=== PATIENT | female | born 1980 | race African-American/Black ===

== ENCOUNTER 2022-04-13 10:29 | Outpatient (REF) | payer OTHER, MEDICAID, SELFPAY ==
--- NOTE | ~2022-04-13 | MM_ITS ---
EXAMINATION: MM SCREENING DIGITAL BREAST TOMOSYNTHESIS, BILATERAL CLINICAL INFORMATION: Screening. Asymptomatic. No prior mammography. Age 41. No known family history breast cancer. The lifetime risk of breast cancer based on the Tyrer-Cuzick Model is 11%. COMPARISON: None (current study represents initial baseline exam). TECHNIQUE: Digital breast tomosynthesis is performed in both the craniocaudal and mediolateral oblique views along with computer-aided detection (CAD). Synthesized 2D images are generated from the tomosynthesis. FINDINGS: The breasts are heterogeneously dense, which may obscure small masses (ACR BI-RADS breast composition Category c). The right breast is unremarkable. There is no mass or architectural abnormality. Neither breast shows abnormal calcifications. The bilateral axilla and skin contours are unremarkable. Left breast has focal nodular asymmetric density under 1 cm mid to posterior upper outer quadrant likely intramammary node. As this represents initial baseline exam, patient will be recalled for additional imaging. MM/MM tomosynthesis screening BI IMPRESSION: Left: -Focal nodular asymmetric density upper outer quadrant, suspect intramammary node. Right: -No mammographic evidence of malignancy. ASSESSMENT: BI-RADS 0: Incomplete - Need Additional Imaging Evaluation RECOMMENDATION: 1. Additional views of the left breast (spot CC, spot ML). 2. Targeted ultrasound if warranted after review of the additional views. 3. Radiology department staff will contact the patient for additional imaging. This patient's information was entered into a reminder system with a target due date for their next mammogram.
== END 2022-04-13 10:30 | disposition home or self-care (01) ==
LOC: HO.MAMMO 10:29
PROVIDERS: PCP Internal Medicine; Visit Provider Internal Medicine
DX: Z12.31 Encounter for screening mammogram for malignant neoplasm of breast (principal)
CPT/HCPCS: 77063; 77067

== ENCOUNTER 2022-04-19 08:28 | Outpatient (REF) | payer OTHER, MEDICAID, SELFPAY ==
--- NOTE | ~2022-04-19 | MM_ITS ---
EXAMINATION: MM DIAGNOSTIC DIGITAL BREAST TOMOSYNTHESIS, LEFT US DIAGNOSTIC ULTRASOUND BREAST, LEFT CLINICAL INFORMATION: Recall from baseline exam for question of focal nodular asymmetry upper outer breast, possibly intramammary node. COMPARISON: Mammography: 04/13/2022 TECHNIQUE: Digital breast tomosynthesis is performed. 2D images are generated from the tomosynthesis. The following views are obtained: Spot CC, spot ML Ultrasound left breast is targeted to the upper outer quadrant using grayscale imaging and color Doppler without and with harmonics. FINDINGS: The breasts are heterogeneously dense, which may obscure small masses (ACR BI-RADS breast composition Category c). The additional views shows normal fibronodular parenchymal pattern without mass, nodular asymmetry, or architectural abnormality. Ultrasound demonstrates no cystic or solid mass or architectural abnormality or focal duct ectasia. Results are discussed with the patient at time of visit. MM/MM tomosynthesis added views L IMPRESSION: -Normal parenchymal pattern without underlying mass or architectural abnormality. -Unremarkable left breast ultrasound. ASSESSMENT: BI-RADS 1: Negative RECOMMENDATION: Routine annual mammography screening. This patient's information was entered into a reminder system with a target due date for their next mammogram.
== END 2022-04-19 08:29 | disposition home or self-care (01) ==
LOC: HO.MAMMO 08:28
PROVIDERS: PCP Internal Medicine; Visit Provider Internal Medicine
DX: N64.89 Other specified disorders of breast (principal)
CPT/HCPCS: 76642; 77061; 77065

== ENCOUNTER 2023-12-12 11:24 | Outpatient (REF) | payer BC, SELFPAY ==
[2023-12-12 14:46] LABS: Alanine Aminotransferase 21 U/L (0-31); Alkaline Phosphatase 52 U/L (39-117); Anion Gap 10 (12-20); Aspartate Amino Transferase 17 U/L (5-31); Bilirubin Total 0.3 mg/dL (0.0-1.0); Blood Urea Nitrogen 12 mg/dL (9-16); Calcium 9.8 mg/dL (8.4-10.2); Carbon Dioxide 27 mmol/L (22-29); Chloride 106 mmol/L (96-108); Cholesterol 166 mg/dL (<200); Estimated Glomerular Filt Rate > 60; Glucose Random 78 mg/dL (60-115); HDL Cholesterol 63 mg/dL (>40); LDL Cholesterol Calculated 93 mg/dL (<100); Potassium 3.6 mmol/L (3.3-5.1); Sodium 139 mmol/L (135-145); Total Protein 7.7 g/dL (6.5-8.0); Triglycerides 52 mg/dL (<150)
[2023-12-12 15:03] LABS: TSH reflex Free T4 1.04 uIU/mL (0.32-4.0)
[2023-12-12 18:09] LABS: Estimated Average Glucose 117 mg/dL; Hemoglobin A1c % 5.7 % (<6.0)
[2023-12-13 04:27] LABS: HIV AB/AG Nonreactive (Nonreactive); HIV Num 1 0.07 S/CO (0.00-0.99); ~HepC Num1 0.48 S/CO (0.00-0.79); ~Hepatitis C Antibody Nonreactive (Nonreactive)
[2023-12-13 09:23] LABS: Rubeola IgG (Measles) >300.00 AU/mL
== END 2023-12-12 11:25 | disposition home or self-care (01) ==
LOC: HO.CHCLDS 11:24
PROVIDERS: Visit Provider Internal Medicine
DX: Z00.00 Encounter for general adult medical examination without abnormal findings (principal); R73.01 Impaired fasting glucose
CPT/HCPCS: 36415; 80053; 80061; 83036; 84443; 86735; 86762; 86765; 86803; 87389

== ENCOUNTER 2024-05-09 13:47 | Outpatient (REF) | payer BC, SELFPAY ==
--- OUTSIDE RECORDS SUMMARY | 2024-05-09 13:49 | XMS_ITS | Encounter Summary ---
Author Organization [employer] Address [address] [facility] [address] [place] [address] Care Team Providers Care Security Intelligence Analyst Name Role Phone Comfort Bueno MD Primary Care Provider [phone] Reason for Visit * Reason Onset Date Comments Lab Orders 05/07/2024 Encounter Details Date Type Department Care Team (Late st Contact Info) Description 05/07/2024 Telephone [facility] MEDICINE [address] [place] [address] Comfort Bueno MD [address] [place] [address] Lab Orders Social History Tobacco Use Types Packs/Day Years Used Date Smoking Tobacco: Never Passive Smoke Exposure: Never Smokeless Tobacco: Never Alcohol Use Standard Drinks/Week Comments Never 0 (1 standard drink = 0.6 oz pur e alcohol) Depression Answer Date Recorded Patient Health Questionnaire-9 Score 3 12/12/2023 Patient Health Questionnaire-9 Score 3 12/12/2023 Last PHQ-9: Questionnaire Data Not on file 0 12/12/2023 Housing Stability Answer Date Recorded What is your housing situation today? I have rosario rivera 12/04/[address] you li ve. Do you have problems with any of the following? None of the above 12/04/2023 Food Insecurity Answer Date Recorded Within the past 12 months, y ou worried that your food would run out before you got money to buy more: Never True 12/04/2023 Within the past 12 months,th e food you bought just didn't last and you didn't have enough money to get more: Never True Transportation Answer Date Recorded In the past 12 months, has l ack of transportation kept you from medical appts, meetings, work or from getting things needed for daily living? No 12/04/2023 Utilities Answer Date Recorded In the past 12 months, has t he electric, gas, oil or water company threatened to shut off services in your home? 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 Stated would send to PCP to write a letter. Pt stated she would get the other lab titers done. Pt is attending a program at [facility]. Does not have number for the office that handles medical information. Currently has ongoing symptoms of heavy discharge and foul smelling urine since the first week of March. Denies fever. LMP at the beginning of this month. Gave pt appt with walk-in at [facility] at 9am. Pt verbalized understanding and agreement with plan. * Telephone Encounter - Meghan Villalpando RN - 05/08/2024 11:14 AM EST TC placed to pt regarding labs. Pt states for school, she needs titers done for varicella and MMR. Additionally, the pt needs the questionnaire for tuberculosis for school purposes. Message forwardedto PCP to review. * Telephone Encounter - Abhay Ladd - 05/07/2024 1:45 PM EST Tc from pt requesting to have lab work done. Pt denied any immediate concerns just wants blood workdone. Please contact pt at [phone]. documented in this encounter Plan of Treatment Not on file documented as of this encounter Visit Diagnoses Not on filedocumented in this encounter Additional Health Concerns Assessment Noted Time PHQ-9 Depression Total Score: 3 12/12/19 24 10:50 AM EDT documented as of this encounter Care Teams Security Intelligence Analyst Relationship Specialty Start Date End Date Comfort Bueno MD [address] [place] [phone] PCP - General Internal Medicine 03/18/18 documented as of this encounter
--- OUTSIDE RECORDS SUMMARY | 2024-05-09 13:49 | XMS_ITS | Encounter Summary ---
Author Organization [employer] Address [address] [place] [address] [address] [place] [address] Care Team Providers Care Border Police Name Role Phone Comfort Bueno MD Primary Care Provider [phone]- [phone] Reason for Visit * Reason Comments Vaginal Discharge Encounter Details Date Type Department Care Team ([facility] st Contact Info) Description 05/09/2024 9:00 AM EST Office Visit [facility] [address] [place] [address] [phone] Name, MD Carlos [address] [place] [address] [phone] Vaginal discharge (Primary Dx) Social History Tobacco Use Types Packs/Day Years [...] AM EDT documented as of this encounter Last Filed Vital Signs Vital Sign Reading Time Taken Comments Blood Pressure 110/70 05/09/2024 9:13 AM EST Pulse 83 05/09/2024 9:13 AM EST Temperature 37.1 ??C (98.7 ??F) 05/09/2024 9:13 AM ES T Respiratory Rate 20 05/09/2024 9:13 AM EST Oxygen Saturation 100% 05/09/2024 9:13 AM EST Inhaled Oxygen Concentration - - Weight 59 kg (130 lb) 05/09/2024 9:13 AM EST Height 160 cm (5' 3 ) 05/09/2024 9:13 AM EST Body Mass Index 23.03 05/09/2024 9:13 AM EST documented in this encounter Progress Notes * Carlos Mensah MD - 05/09/2024 9:00 AM EST Subjective Patient ID: Fatou Burnett is a 43 y.o. female who presents for Vaginal Discharge. Vaginal Discharge The patient's primary symptoms include genital itching, a genital odor and vaginal discharge. The patient's pertinent negatives include no genital rash, missed menses or pelvic pain. This is a new problem. The current episode started more than 1 month ago. The problem occurs intermittently. The problem has been unchanged. The patient is experiencing no pain. She is not . Pertinent negatives include no chills, dysuria, fever, flank pain or rash. The vaginal discharge was thick and white.There has been no bleeding. She has tried nothing for the symptoms. She is not sexually active. Sheuses condoms for contraception. Her menstrual history has been regular. There is no history of an STD. Review of Systems Constitutional: Negative for chills and fever. Genitourinary: Positive for vaginal discharge. Negative for dysuria, flank pain, missed menses and pelvic pain. Skin: Negative for rash. Visit Vitals BP 110/70 (BP Location: Right arm, Patient Position: Sitting, BP Cuff Size: Adult) Pulse 83 Temp 98.7 ??F (37.1 ??C) (Oral) Resp 20 Ht 5' 3 (1.6 m) Wt 130 lb (59 kg) LMP 04/19/2024 (Approximate) SpO2 100% BMI 23.03 kg/m?? Smoking Status Never BSA 1.62 m?? Objective Physical Exam Constitutional: General: She is not in acute distress. Appearance: She is not toxic-appearing. Cardiovascular: Rate and Rhythm: Normal rate and regular rhythm. Pulmonary: Effort: Pulmonary effort is normal. No respiratory distress. Abdominal: General: Abdomen is flat. There is no distension. Assessment/Plan Diagnoses and all orders for this visit: Vaginal discharge Comments: I suspect vaginal yeast infection. I recommended treatment with 1 dose of fluconazole. Evaluation with testing listed below. Further recommendation based on the results and response to the medication. Orders: - Chlamydia/N. Gonorrhoeae RNA, TMA, Urogenitial - Bacterial Vaginosis - POCT Urinalysis - POCT Urine Other orders - fluconazole (Diflucan) 150 MG tablet; Take 1 tablet (150 mg) by mouth 1 (one) time for 1 dose. documented in this encounter Plan of Treatment Scheduled Orders Name Type Priority Associated Diagnoses Orde r Schedule Chlamydia/N. Gonorrhoeae RNA, TMA, Urogenitial Microbiology Routine Vaginal discharge Ordered: 05/09/2024 Bacterial Vaginosis Microbiology Routine Vaginal discharge Ordered: 05/09/2024 documented as of this encounter Procedures Procedure Name Priority Date/Time Associated Diagnosis Comments POCT URINALYSIS DIPSTICK Routine 05/09/2024 9:27 AM EST Vaginal discharge POCT , URINE Routine 05/09/2024 9:26 AM EST Vaginal discharge documented in this encounter Results * (ABNORMAL) POCT Urinalysis (05/09/2024 9:27 AM EST) Color, UA Yellow Clarity, UA Clear Glucose, UA Negative Bilirubin, UA Negative Ketones, UA Negative Spec Grav, UA 1.020 Blood, UA Negative Negative, None Detected pH, UA 6.0 Protein, UA Negative Urobilinogen, UA 1.0 Leukocytes, UA Few 15(A) Negative, Rare, Trace Comment:small Nitrite, UA Negative Negative, None Detected Appearance, UA clear QC Media Lot # [id number] Lot# Expiration Date [id number] Urine 05/09/2024 9:27 AM EST us Carlos Mensah MD POINT OF CARE TEST ENTER/EDIT OR DERABLES Final Result * POCT Urine (05/09/2024 9:26 AM EST) Preg Test, Ur Negative Negative, Indeterminate, None Detected, Invalid, Specimen unsatisfactory for evaluation, Weakly Positive QC Media Lot # [id number] Lot# Expiration Date [id number] Urine 05/09/2024 9:2 6 AM EST Carlos Mensah MD POINT OF CARE TEST ENTER/EDIT OR DERABLES Final Result documented in this encounter Visit Diagnoses Diagnosis Vaginal discharge- Primary Leukorrhea, not specified as infective documented in this encounter Additional Health Concerns Assessment Noted Time PHQ-9 Depression Total Score: 3 12/12/19 24 10:50 AM EDT documented as of this encounter Care Teams Border Police Relationship Specialty Start Date End Date Comfort Bueno MD [address] [place] [phone] PCP - General Internal Medicine 03/18/18 documented as of this encounter
--- OUTSIDE RECORDS SUMMARY | 2024-05-09 13:49 | XMS_ITS | Encounter Summary ---
Author Organization [employer] Address [address] [place] [address] [address] [place] [address] Care Team Providers Care Tax Evaluator Name Role Phone Comfort Bueno MD Primary Care Provider +1- [phone] Encounter Details Date Type Department Care Team ([facility] st Contact Info) Description 05/08/2024 Orders Only [facility]S [address] [place], [place] [phone] Comfort Bueno MD [address] [place] [address] IFG (impaired fasting glucose) (Primary Dx) Social History Tobacco Use Types [...] AM EDT documented as of this encounter Plan of Treatment Scheduled Orders Name Type Priority Associated Diagnoses Orde r Schedule Varicella Zoster Antibody, IgG Lab Routine IFG (impaired fasting glucose) Expected: 05/08/2024 (Approximate), Expires: 05/08/2025 Measles, Mumps, and Rubella (MMR) Antibodies??(IgG) Panel, Immune Status Lab Routine IFG (impaired fasting glucose) Expected: 05/08/2024 (Approximate), Expires: 05/08/2025 T-SPOT??.TB Lab Routine IFG (impaired fasting glucose) Expected: 05/08/2024 (Approximate), Expires: 05/08/2025 documented as of this encounter Visit Diagnoses Diagnosis IFG (impaired fasting glucose)- Primary documented in this encounter Additional Health Concerns Assessment Noted Time PHQ-9 Depression Total Score: 3 12/12/19 24 10:50 AM EDT documented as of this encounter Care Teams Tax Evaluator Relationship Specialty Start Date End Date Comfort Bueno MD [address] [place] [phone] PCP - General Internal Medicine 03/18/18 documented as of this encounter
--- OUTSIDE RECORDS SUMMARY | 2024-05-09 13:49 | XMS_ITS | Clinical Summary ---
Author Organization [employer] Address [address] [place] [address] 7 [place] [address] Care Team Providers Care Filler In Name Role Phone Comfort Bueno MD Primary Care Provider Allergies No known active allergies Medications fluconazole (Diflucan) 150 MG tablet Take 1 tablet (150 mg) by mouth 1 (one) time for 1 dose. 1 tablet 05/09/2024 Active Active Problems No known active problems Encounters Date Type Department Care Team Description 05/09/2024 9:00 AM EST Office Visit [facility] [address] [place] [phone] Carlos Mensah MD Vaginal discharge (Primary Dx) 05/08/2024 Travel 05/08/2024 Orders Only [facility]S [address] [place] [address] Comfort Bueno MD IFG (impaired fasting glucose) (Primary Dx) 05/07/[address] [facility] [address] [place] [address] Comfort Bueno MD Lab Orders from Last 3 Months Immunizations Name Administration Dates Next Due Hep B, adult 12/12/2023,07/06/2014 Influenza, seasonal, injectable, preservative fr ee 12/12/2023 Tdap 12/12/2023,06/01/2012 Family History Medical History Relation Name Comments Diabetes Mother Relation Name Status Comments Mother Social History Tobacco Use Types Packs/Day Years Used Date Smoking Tobacco: Never Passive Smoke Exposure: Never Smokeless Tobacco: Never Tobacco Cessation:Counseling Given: Not Answered Alcohol Use Standard Drinks/Week Comments Never 0 [...] Orientation Straight 01/15/2022 10 :25 AM EDT Last Filed Vital Signs Vital Sign Reading [...] Mass Index 23.03 05/09/2024 9:13 AM EST Plan of Treatment Health Maintenance Due Date Last Done Comments Alcohol/Substance Use Screening 1993 Family Planning (PISQ) 1996 Pap Smear 2002 Dental Oral Exam 07/18/2019 01/16/2019, 03/14/2016 Dental Prophylaxis 08/30/2019 02/27/2019, 0 09/24/2016, 03/16/2016 Cervical Cancer Screening 01/07/2023 HPV/Cotest 01/07/2023 01/07/2018 COVID-19 Vaccine ( season) 2023 02/17/2021, 05/03/2020, 04/12/2020 Hepatitis B Vaccines (3 of 3 - 19+ 3-dose series) 02/06/2024 12/12/2023, 07/06/2014 Mammogram 04/19/2024 04/19/2022, 04/2022, 04/13/2022 Dental X-Ray: Bitewings 11/15/2024 11/15/19 24, 01/16/2019, 03/14/2016 SDOH Screening 12/03/2024 12/04/2023 Depression Screening 12/11/2024 12/12/2023, 12/12/19 24 Diabetes: Hemoglobin A1C 12/11/2024 12/12/2023, 0207/2022 Tobacco Screening 05/09/2025 05/09/2024 Dental X-Ray: Full Mouth 11/15/2026 024, 01/16/2019, 03/26/2016, Additional history exists Zoster Vaccines (1 of 2) 06/29/2031 DTaP/Tdap/Td Vaccines (3 - Td or Tdap) 12/11/2033 12/12/2023, 06/01/2012 RSV Patients and Patients Aged 60 years or older (1 - 1-dose 75+ series) 2056 HIV Screening Completed 12/12/2023 Hepatitis C Screening Completed 12/12/2023 Influenza Vaccine Completed 12/12/2023, , 01/04/2022, Additional history exists HIB Vaccines Aged Out No longer eligi ble based on patient's age to complete this topic HPV Vaccines Aged Out No longer eligi ble based on patient's age to complete this topic Hepatitis A Vaccines Aged Out No long er eligible based on patient's age to complete this topic IPV Vaccines Aged Out No longer eligi ble based on patient's age to complete this topic Meningococcal Vaccine Aged Out No miguelina silvino eligible based on patient's age to complete this topic Pneumococcal Vaccine: Pediatrics (0 to 5 Years) and At-Risk Patients (6 to 49) Years) Aged Out No longer eligible based on patient's age to complete this topic RSV under 20 months Aged Out No longe r eligible based on patient's age to complete this topic Rotavirus Vaccines Aged Out No longer eligible based on patient's age to complete this topic Procedures Procedure Name Priority Date/Time Associated Diagnosis Comments POCT URINALYSIS DIPSTICK Routine 05/09/2024 9:27 AM EST Vaginal discharge POCT , URINE Routine 05/09/2024 9:26 AM EST Vaginal discharge HEPATITIS C AB W/REFL TO HCV RNA, QN, PCR Routine 12/12/2023 11:35 AM EDT Annual physical exam HIV 1/2 ANTIGEN/ANTIBODY, FOURTH GENERATION W/RFL Routine 12/12/2023 11:35 AM EDT Annual physical exam HEMOGLOBIN A1C Routine 12/12/2023 11:35 AM EDT IFG (impaired fasting glucose) INTRAORAL - COMPLETE SERIES OF RADIOGRAPHIC IMAGES Routine 11/15/2023 8:00 AM EDT HM MAMMOGRAPHY Routine 04/19/2022 4:09 PM EST PROPHYLAXIS - ADULT Routine 02/27/2019 1 2:00 AM EST PERIODIC ORAL EVALUATION - ESTABLISHED PATIENT Routine 01/16/2019 12:00 AM EDT ZZZ HISTORICAL HPV MRNA E6/E7 Routine 01/07/2018 10:22 AM EDT from Last 3 Months or Most Recently Relevant to Health Maintenance Results * (ABNORMAL) POCT Urinalysis (05/09/2024 9:27 [...] Media Lot # [id number] Lot# Expiration Date [id number] Urine 05/09/2024 9:27 AM EST Carlos Mensah MD POINT OF CARE TEST ENTER/EDIT OR DERABLES Final Result * POCT Urine (05/09/2024 9:26 AM EST) Preg Test, Ur Negative Negative, Indeterminate, None Detected, Invalid, Specimen unsatisfactory for evaluation, Weakly Positive QC Media Lot # [id number] Lot# Expiration Date [id number] Urine 05/09/2024 9:26 AM EST Carlos Mensah MD POINT OF CARE TEST ENTER/EDIT OR DERABLES Final Result * Hepatitis C Antibody with Reflex to HCV, RNA, Quantitative, Real-Time PCR (12/12/2023 11:35 AM EDT) Pathologist [facility] Hepatitis C Antibody Nonreactive Nonreactive [facility] Comment:Antibodies to HCV no t detected; does not exclude early acuteHCV infection. Blood Venous blood specimen / Unknown 12/12/2023 11:35 AM EDT 12/12/2023 2:13 PM EDT us Comfort Bueno MD LAB BLOOD ORDERABLES Final Result [facility] [address] [place] [phone] * HIV-1/2 Antigen and Antibodies, Fourth Generation, with Reflexes (12/12/2023 11:35 AM EDT) HIV AB/AG Nonreactive Nonreactive [facility] Comment:HIV-1 p24 Ag and/or HIV-1/HIV-2 Ab not detected.A test result that is nonreactive does not exclude thepossibility of exposure to or infection with HIV-1 and/orHIV-2. Nonreactive results in this assay for individualswith prior exposure to HIV-1 and/or HIV-2 may be due toantigen and antibody levels that are below the limit ofdetection of this assay.[employer] HIV Ag/Ab Combo assay result andsupplemental assay results should be interpreted inconjunction with the patient's clinical presentation,history and other laboratory results. If the results areinconsistent with clinical evidence, additional testing issuggested to confirm the result. Blood Venous blood specimen / Unknown 12/12/2023 11:35 AM EDT 12/12/2023 2:13 PM EDT us Comfort Bueno MD LAB BLOOD ORDERABLES Final Result [facility] [address] [place] [phone] * Hemoglobin A1c (12/12/2023 11:35 AM EDT) Hemoglobin A1c 5.7 <6.0 % [facility] Comment:Hemoglobin A1C Refer ence Range Adults: 4.8 - 6.0 % Non diabetic: < 6.0 % Goal: < 7.0 %Additional Action Suggested: > 8.0 %Note: Hemoglobin A1c results are invalid for patients with abnormal amounts of HbF. Blood transfusions may impact the HbA1c concentration in the patient sample. Estimated Average Glucose 117 mg/dL [facility] Comment:eAG = Estimated ave rage glucose which is %A1C expressed asaverage glucose, using the formula of the K3L-WfwxoqrZqlggon Glucose study (ADAG), Diabetes Care, Vol.31,#8,2007 Blood Venous blood specimen / Unknown 12/12/2023 11:35 AM EDT 12/12/2023 2:13 PM EDT us Comfort Bueno MD LAB BLOOD ORDERABLES Final Result [facility] [address] [place] [address] [phone] * Hm Mammography (04/19/2022 4:09 PM EST) Mammogram Birads 1 Anatomical Region Laterality Modality Other Narrative 04/19/2022 4:09 PM EST Recommended routine annual screening us Historical Provider HEALTH MAINTENANCE Final Result * HPV mRNA E6/E7 (01/07/2018 10:22 AM EDT) HPV mRNA E6/E7 Not Detected NOT DETECTED [facility] [facility] Comment: This test was performed using the APTIMA(R) HPV Assay ([employer] This assay detects E6/E7 viral messenger RNA (mRNA) from 14 high-risk HPV types (16,18,31,33,35,39,45,51, 52,56,58,59,66,68). For additional information please refer to: http://education.[employer]/faq/QVV924x8 (This link is being provided for informational/ educational purposes only.) The analytical performance characteristics of this assay have been determined by [employer] [place], [place]. The modifications have not been cleared or approved by the FDA. This assay has been validated pursuant to the CLIA regulations and is used for clinical purposes. Test Performed by [employer] [facility], [address] [place] [address] Jose Martin Gimenez M.D., Ph.D., Director of Laboratories , CLIA [id number] Please note: ??Effective 11/28/2015, HPV testing will be performed using [employer] APTIMA test which targets mRNA. Detecting mRNA instead of DNA, as in older methods, offers significant improvements in specificity. 01/07/2018 10:2 2 AM EDT us Madhavi Blancasjustynpebbles [facility] HISTORICAL/NON ORDERABLE LABS Final Result [facility] [address] from Last 3 Months or Most Recently Relevant to Health Maintenance Insurance BCBS PPO [facility]AL - [facility] Care Teams Filler In Relationship Specialty Start Date End Date Comfort Bueno MD [address] [place] [phone] PCP - General Internal Medicine 03/18/18
--- OUTSIDE RECORDS SUMMARY | 2024-05-09 13:49 | XMS_ITS | Encounter Summary ---
Author Organization [employer] Address [address] [facility] [address] [place] [address] Care Team Providers Care Shaker Tender Name Role Phone Comfort Bueno MD Primary Care Provider [phone] Reason for Visit * Reason Onset Date Comments ER Follow-up 04/23/2023 Encounter Details Date Type Department Care Team ([facility] st Contact Info) Description 04/23/2023 Telephone [facility] MEDICINE [address] [place] [address] Comfort Bueno MD [address] [place] [address] ER Follow-up Social History Tobacco Use Types Packs/Day Years Used Date Smoking Tobacco: Never Passive Smoke Exposure: Never Smokeless Tobacco: Never Alcohol Use Standard Drinks/Week Comments Never 0 (1 standard drink = 0.6 oz pur e alcohol) Depression Answer Date Recorded Patient Health Questionnaire-9 Score 2 05/02/2022 Housing Stability Answer Date Recorded What is your housing situation today? I have rosario rivera 01/15/[address] you li ve. Do you have problems with any of the following? None of the above 01/15/2023 Food Insecurity Answer Date Recorded Within the past 12 months, y ou worried that your food would run out before you got money to buy more: Never True 01/15/2023 Within the past 12 months,th e food you bought just didn't last and you didn't have enough money to get more: Never True Transportation Answer Date Recorded In the past 12 months, has l ack of transportation kept you from medical appts, meetings, work or from getting things needed for daily living? No 01/15/2023 Utilities Answer Date Recorded In the past 12 months, has t he electric, gas, oil or water company threatened to shut off services in your home? No 01/15/2023 Depression Answer Date Recorded Patient Health Questionnaire-2 Score 1 05/02/2022 Comments Unknown Sex and Gender Information Value Date Recorded Sex Assigned at Female 01/15/2022 10:25 AM EDT Legal Sex Female 10:25 AM EDT Gender Identity Female 01/15/2022 10:25 AM EDT Sexual Orientation Straight 01/15/2022 10 :25 AM EDT documented as of this encounter Miscellaneous Notes * Telephone Encounter - Anne Ro RN - 04/24/2023 10:45 AM EST Noted pt was advised to call insurance to enroll to an insurance if pt would like to be seen, and return call to inform once active. * Telephone Encounter - William Rincon - 04/23/2023 10:50 AM EST Patient calling to report ED visit on : Date: 04/22/2023 Hospital: [facility] Seen for: Abscess neck Patient advised will forward to team nurse for follow up documented in this encounter Plan of Treatment Not on file documented as of this encounter Visit Diagnoses Not on filedocumented in this encounter Additional Health Concerns Assessment Noted Time PHQ-9 Depression Total Score: 2 05/02/19 23 10:36 AM EST documented as of this encounter Care Teams Shaker Tender Relationship Specialty Start Date End Date Comfort Bueno MD [address] [place] [address] PCP - General Internal Medicine 03/18/18 documented as of this encounter
--- OUTSIDE RECORDS SUMMARY | 2024-05-09 13:49 | XMS_ITS | Encounter Summary ---
Author Organization [employer] Address [address] [place] [address] [place] [address] Care Team Providers Care Event Management Consultant Name Role Phone Comfort Bueno MD Primary Care Provider [phone] Encounter Details Date Type Department Care Team ([facility] st Contact Info) Description 10/31/2022 Orders Only [facility] MED & PEDS [address] [place], [place] [phone] Comfort Bueno MD [address] [place] [address] Annual physical exam (Primary Dx); Screening for tuberculosis; Positive TB test Social History Tobacco Use Types Packs/Day Years Used Date Smoking Tobacco: Never Passive Smoke Exposure: Never Smokeless Tobacco: Never Alcohol Use Standard Drinks/Week Comments Never 0 (1 standard drink = 0.6 oz pur e alcohol) Depression Answer Date Recorded Patient Health Questionnaire-9 Score 2 05/02/2022 Depression Answer Date Recorded Patient Health Questionnaire-2 [...] Type Priority Associated Diagnoses Orde r Schedule QuantiFERON??-TB Gold Plus, 1 Tube Lab Routine Screening for tuberculosis Expected: 10/31/2022 (Approximate), Expires: 11/01/2023 XR Chest 2 Views Imaging Routine Positive TB test Expected: 11/01/2022 (Approximate), Expires: 11/02/2023 documented as of this encounter Visit Diagnoses Diagnosis Annual physical exam- Primary Routine general medical examination at a health care facility Screening for tuberculosis Screening examination for pulmonary tuberculosis Positive TB test documented in this encounter Additional Health Concerns Assessment Noted Time PHQ-9 Depression Total Score: 2 05/02/19 23 10:36 AM EST documented as of this encounter Care Teams Event Management Consultant Relationship Specialty Start Date End Date Comfort Bueno MD [address] [place] [phone] PCP - General Internal Medicine 03/18/18 documented as of this encounter
--- OUTSIDE RECORDS SUMMARY | 2024-05-09 13:49 | XMS_ITS | Encounter Summary ---
Author Organization [employer] Address [address] [place] [address] [place] [address] Care Team Providers Care Rattling Machine Tender Name Role Phone Comfort Bueno MD Primary Care Provider Encounter Details Date Type Department Care Team ([facility] st Contact Info) Description 08/24/2022 Abstract [facility] MED & PEDS [address] [place] [address] Comfort Bueno MD [address] [place] [address] Social History Tobacco Use Types Packs/Day Years [...] as of this encounter Plan of Treatment Not on file documented as of this encounter Procedures Procedure Name Priority Date/Time Associated Diagnosis Comments MAMMOGRAPHY Routine 04/19/2022 4:09 PM EST documented in this encounter Results * Mammography (04/19/2022 4:09 PM EST) Mammogram Birads 1 Anatomical Region Laterality Modality Other Narrative 04/19/2022 4:09 PM EST Recommended routine annual screening us Historical Provider HEALTH MAINTENANCE Final Result documented in this encounter Visit Diagnoses Not on filedocumented in this encounter Additional Health Concerns Assessment Noted Time PHQ-9 Depression Total Score: 2 05/02/19 23 10:36 AM EST documented as of this encounter Care Teams Rattling Machine Tender Relationship Specialty Start Date End Date Comfort Bueno MD [address] [place] [phone] PCP - General Internal Medicine 03/18/18 documented as of this encounter
--- OUTSIDE RECORDS SUMMARY | 2024-05-09 13:49 | XMS_ITS | Encounter Summary ---
Author Organization [employer] Address [address] [facility] 7t [place] [address] Care Team Providers Care Sewing Machine Operator Zipper Name Role Phone Comfort Bueno MD Primary Care Provider [phone]- [phone] Encounter Details Date Type Department Care Team (Latest Contact Info) Description 05/08/2024 Travel Social History Tobacco Use Types Packs/Day Years [...] documented as of this encounter Care Teams Sewing Machine Operator Zipper Relationship Specialty Start Date End Date Comfort Bueno MD [address] [place] [phone] PCP - General Internal Medicine 03/18/18 documented as of this encounter
[2024-05-09 14:54] LABS: Bacterial Vaginosis PCR NEGATIVE (Negative); Candida Group PCR DETECTED (Not Detect); Candida glab krusei PCR NOT DETECTED (Not Detect); Trichomonas vaginalis PCR NOT DETECTED (Not Detect)
[2024-05-09 15:24] LABS: CT PCR NOT DETECTED (Not Detect.); NG PCR NOT DETECTED (Not Detect.)
== END 2024-05-09 13:48 | disposition home or self-care (01) ==
LOC: HO.HHCLNP 13:47
PROVIDERS: Visit Provider Internal Medicine Geriatric Medicine
DX: N89.8 Other specified noninflammatory disorders of vagina (principal)
CPT/HCPCS: 81515; 87491; 87591

== ENCOUNTER 2024-05-22 08:15 | Outpatient (REF) | payer BC, SELFPAY ==
--- OUTSIDE RECORDS SUMMARY | 2024-05-22 08:42 | XMS_ITS | Encounter Summary ---
Author Organization [employer] Address [address] [facility] 7t [place] [address] Care Team Providers Care Computer Designer Name Role Phone Comfort Bueno MD Primary Care Provider [phone]- [phone] Encounter Details Date Type Department Care Team [...] documented as of this encounter Care Teams Computer Designer Relationship Specialty Start Date End Date Comfort Bueno MD [address] [place] [phone] PCP - General Internal Medicine 03/18/18 documented as of this encounter
--- OUTSIDE RECORDS SUMMARY | 2024-05-22 08:42 | XMS_ITS | Encounter Summary ---
Author Organization [employer] Address [address] [place] [address] 7t [place] [address] Care Team Providers Care Theater Technician Name Role Phone Comfort Bueno MD Primary Care Provider [phone]- [phone] Encounter Details Date Type Department Care Team ([facility] st Contact Info) Description 05/08/2024 Orders Only [facility] MED & PEDS [address] [place], [place] [phone] Comfort Bueno MD [address] [place] [address] IFG (impaired fasting glucose) (Primary Dx) Social [...] documented as of this encounter Care Teams Theater Technician Relationship Specialty Start Date End Date Comfort Bueno MD [address] [place] [phone] PCP - General Internal Medicine 03/18/18 documented as of this encounter
--- OUTSIDE RECORDS SUMMARY | 2024-05-22 08:42 | XMS_ITS | Encounter Summary ---
Author Organization [employer] [facility] Address [address] [place] [address] Care Team Providers Care Canvass Manager Name Role Phone Comfort Bueno MD Primary Care Provider [phone]- [phone] Encounter Details Date Type Department Care Team (Latest Contact Info) Description 01/16/2019 Abstract [facility] CONVERSIONS Dental, Provider, DDS Social History Tobacco Use Types Packs/Day Years Used Date Smoking Tobacco: Never Assessed Comments Unknown Sex and Gender Information Value Date Recorded Sex Assigned at Female 01/15/2022 10:25 AM EDT Legal Sex Female 10:25 AM EDT Gender Identity Female 01/15/2022 10:25 AM EDT Sexual Orientation Straight 01/15/2022 10 :25 AM EDT documented as of this encounter Plan of Treatment Not on file documented as of this encounter Visit Diagnoses Not on filedocumented in this encounter Care Teams Canvass Manager Relationship Specialty Start Date End Date Comfort Bueno MD [address] [place] [address] PCP - General Internal Medicine 03/18/18 documented as of this encounter
--- OUTSIDE RECORDS SUMMARY | 2024-05-22 08:43 | XMS_ITS | Encounter Summary ---
Author Organization [employer] Address [address] [place] [address] 7 [place] [address] Care Team Providers Care Circuit Rider Name Role Phone Comfort Bueno MD Primary Care Provider [phone]- [phone] Reason for Visit * Reason Onset Date Comments Results 05/11/2024 Encounter Details Date Type Department Care Team ([facility] st Contact Info) Description 05/11/2024 Telephone [facility] MEDICINE [address] [place] [address] Name, MD Carlos [address] [place] [address] Results Social History Tobacco Use Types Packs/Day Years [...] encounter Miscellaneous Notes * Telephone Encounter - Meghan Villalpando RN - 05/11/2024 9:51 AM EST Images from the original note were not included. TC placed to pt to inform of below provider messages. Pt advised of provider message. Advised pt tocall office with any questions or concerns. Pt verbalized understanding and denies questions or concerns at this time. ----- Message from Calros Mensah MD sent at 05/11/2024 7:05 AM EST ----- Please call the patient, let her know all STD testing was negative, she tested positive for tito(vaginal yeast infection) as suspected. The treatment is the fluconazole that she was prescribed ather last visit. Carlos Mensah MD [facility] Team Nurses Please call the patient, STD testing was negative She tested positive for tito as expected and this should resolved with the fluconazole she was prescribed at her last visit. * Telephone Encounter - Jess López - 05/11/2024 9:19 AM EST Tc from pt returning call. * Telephone Encounter - Meghan Villalpando RN - 05/11/2024 8:44 AM EST Images from the original note were not included. TC placed to pt to inform of below provider messages. No answer, LVM to call office back and ask tospeak to the blue team nurses. ----- Message from Carlos Mensah MD sent at 05/11/2024 7:05 AM EST ----- Please call the patient, let her know all STD testing was negative, she tested positive for tito(vaginal yeast infection) as suspected. The treatment is the fluconazole that she was prescribed ather last visit. Carlos Mensah MD [facility] Blue Team Nurses Please call the patient, STD testing was negative She tested positive for tito as expected and this should resolved with the fluconazole she was prescribed at her last visit. documented in this encounter Plan of Treatment Not on file documented as of this encounter Visit Diagnoses Not on filedocumented in this encounter Additional Health Concerns Assessment Noted Time PHQ-9 Depression Total Score: 3 12/12/19 24 10:50 AM EDT documented as of this encounter Care Teams Circuit Rider Relationship Specialty Start Date End Date Comfort Bueno MD [address] [place] [phone] PCP - General Internal Medicine 03/18/18 documented as of this encounter
--- OUTSIDE RECORDS SUMMARY | 2024-05-22 08:43 | XMS_ITS | Encounter Summary ---
Author Organization [employer] Address [address] [place] [address] 7t [place] [address] Care Team Providers Care Room Inspector Name Role Phone Comfort Bueno MD Primary Care Provider [phone]- [phone] Reason for Visit * Reason Comments Vaginal Discharge Encounter Details Date Type Department Care Team ([facility] st Contact Info) Description 05/09/2024 9:00 AM EST Office Visit [facility] [address] [place] [phone] Name, MD Carlos [address] [place] [address] [phone] Vaginal discharge (Primary Dx) Social History Tobacco [...] Routine 05/09/2024 9:26 AM EST Vaginal discharge BACTERIAL VAGINOSIS PANEL Routine 05/09/2024 9:18 AM EST Vaginal discharge CHLAMYDIA/N. GONORRHOEAE RNA, TMA, UROGENITAL Routine 05/09/2024 9:18 AM EST Vaginal discharge documented in this [...] Media Lot # [id number] Lot# Expiration Date ,025 Urine 05/09/2024 9:27 AM EST us Carlos Mensah MD POINT OF CARE TEST ENTER/EDIT OR DERABLES Final Result * POCT Urine (05/09/2024 9:26 AM EST) Preg Test, Ur Negative Negative, Indeterminate, None Detected, Invalid, Specimen unsatisfactory for evaluation, Weakly Positive QC Media Lot # [id number] Lot# Expiration Date [id number] Urine 05/09/2024 9:26 AM EST us Carlos Mensah MD POINT OF CARE TEST ENTER/EDIT OR DERABLES Final Result * (ABNORMAL) Bacterial Vaginosis (05/09/2024 9:18 AM EST) TRICHOMONAS VAGINALIS DETECTION BY PCR NOT DETECTED Not Detect [facility] BACTERIAL VAGINOSIS DETECTION BY PCR NEGATIVE Negative [facility] Comment:The BV organism targ ets of the Xpert Xpress MVP test can becommensal in women; Xpert Xpress MVP positive results forbacterial vaginosis should be considered in conjunction withother clinical and patient information to determine thedisease status. Organisms that are not detected by the XpertXpress MVP test have also been reported to be associatedwith BV and aerobic vaginitis.The Xpert Xpress MVP test performance has not been evaluatedin patients under the age of 14. DOLORES GROUP DETECTION BY PCR DETECTED(A) Not Detect [facility] Dolores glab krusei PCR NOT DETECTED Not Detect [facility] Swab Vaginal structure / Unknown 05/09/2024 9:18 AM EST 05/09/2024 1:48 PM EST us Carlos Name MD LAB MICROBIOLOGY - GENERAL ORDER ESTEVAN Final Result [facility] [address] [place] [address] [phone] * Chlamydia/N. Gonorrhoeae RNA, TMA, Urogenitial (05/09/2024 9:18 AM EST) CT PCR NOT DETECTED Not Detect. [facility] Comment:A not detected test result does not exclude the possibilityof infection because test results can be affected byimproper specimen collection, concurrent antibiotic therapy,or the number of organisms in the specimen which may bebelow the sensitivity of the test. As with many diagnostictests, results from the Xpert CT/NG assay should beinterpreted in conjunction with other laboratory andclinical data available to the clinician.Xpert CT/NG performance has not been evaluated in patientsless than 14 years of age. The assay should not be used forthe evaluationof suspected sexual abuse or for other medico-legalindications. Additional testing is recommended in anycircumstance when false positive or false negative resultscould lead to adverse medical, social or psychologicalconsequences. NG PCR NOT DETECTED Not Detect. [facility] Comment:A not detected test result does not exclude the possibilityof infection because test results can be affected byimproper specimen collection, concurrent antibiotic therapy,or the number of organisms in the specimen which may bebelow the sensitivity of the test. As with many diagnostictests, results from the Xpert CT/NG assay should beinterpreted in conjunction with other laboratory andclinical data available to the clinician.Xpert CT/NG performance has not been evaluated in patientsless than 14 years of age. The assay should not be used forthe evaluationof suspected sexual abuse or for other medico-legalindications. Additional testing is recommended in anycircumstance when false positive or false negative resultscould lead to adverse medical, social or psychologicalconsequences. Swab (Vaginal Swab) 05/09/2024 9:18 AM EST 05/09/2024 1:48 PM EST Narrative [facility] - 05/09/2024 3:24 PM EST Vaginal us Carlos Name LAB MICROBIOLOGY - GENERAL ORDER ESTEVAN Final Result [facility] [address] [place] [address] [phone] documented in this encounter Visit Diagnoses Diagnosis Vaginal discharge- Primary Leukorrhea, not specified as infective documented in this encounter Additional Health Concerns Assessment Noted Time PHQ-9 Depression Total Score: 3 12/12/19 24 10:50 AM EDT documented as of this encounter Care Teams Room Inspector Relationship Specialty Start Date End Date Comfort Bueno MD [address] [place] [phone] PCP - General Internal Medicine 03/18/18 documented as of this encounter
--- OUTSIDE RECORDS SUMMARY | 2024-05-22 08:43 | XMS_ITS | Clinical Summary ---
Author Organization [employer] Address [address] [place] [address] [address] [place] [address] Care Team Providers Care Truck Driver Helper Name Role Phone Comfort Bueno MD Primary Care Provider [phone] Allergies No known active allergies Medications fluconazole (Diflucan) 150 MG tablet Take 1 tablet (150 mg) by mouth 1 (one) time for 1 dose. 1 tablet 05/09/2024 Active Problems No known active problems Encounters Date Type Department Care Team Description 05/11/2024 Telephone [facility] [address] [place] [phone] Carlos Mensah MD Results 05/09/2024 9:00 AM EST Office Visit [facility] [address] [place] [phone] Carlos Mensah MD Vaginal discharge (Primary Dx) 05/08/2024 Travel 05/08/2024 Orders Only [facility] [address] [place] [address] Comfort Bueno MD IFG (impaired fasting glucose) (Primary Dx) 05/07/2024 Telephone [facility] [address] [place] [phone] Comfort Bueno MD Lab Orders from Last [...] series) 02/06/2024 12/12/2023, 07/06/2014 Mammogram 04/19/2024 04/19/2022, 02/0 04/2022, 04/13/2022 Dental X-Ray: Bitewings 11/15/2024 11/15/19 24, 01/16/2019, 03/14/2016 SDOH Screening 12/03/2024 12/04/2023 Depression Screening 12/11/2024 12/12/2023, 12/12/19 24 Diabetes: Hemoglobin A1C 12/11/2024 12/12/2023, 02/1 07/2022 Tobacco Screening 05/09/2025 05/09/2024 Dental X-Ray: Full [...] Routine 05/09/2024 9:18 AM EST Vaginal discharge HEPATITIS C AB [...] ESTABLISHED PATIENT Routine 01/16/2019 12:00 AM EDT TEREZA HISTORICAL HPV MRNA E6/E7 Routine 01/07/2018 10:22 [...] * POCT Urine (05/09/2024 9:26 AM EST) Pathologist [facility] Preg Test, Ur Negative Negative, Indeterminate, None Detected, Invalid, Specimen unsatisfactory for evaluation, Weakly Positive QC Media Lot # [id number] Lot# Expiration Date [id number] Urine 05/09/2024 9:26 AM EST Carlos Mensah MD POINT OF CARE TEST ENTER/EDIT OR DERABLES Final Result * (ABNORMAL) Bacterial Vaginosis (05/09/2024 9:18 AM EST) Pathologist [facility] TRICHOMONAS VAGINALIS DETECTION BY PCR NOT DETECTED [...] EST 05/09/2024 1:48 PM EST us Carlos Mensah MD LAB MICROBIOLOGY - GENERAL ORDER ESTEVAN Final Result [facility] [address] [place] [address] [phone] * Chlamydia/N. Gonorrhoeae RNA, TMA, Urogenitial [...] LABS - 05/09/2024 3:24 PM EST Vaginal Carlos Mensah MD LAB MICROBIOLOGY - GENERAL ORDER ESTEVAN Final Result Performing Organization Address [facility] Co de Phone Number [facility] [address] [place] [phone] * Hepatitis C Antibody with Reflex to HCV, RNA, Quantitative, Real-Time PCR (12/12/2023 11:35 AM EDT) Hepatitis C Antibody Nonreactive Nonreactive [facility] Comment:Antibodies to HCV no t detected; does not exclude early acuteHCV infection. Blood Venous blood specimen / Unknown 12/12/2023 11:35 AM EDT 12/12/2023 2:13 PM EDT us Comfort Bueno MD LAB BLOOD ORDERABLES Final Result Performing Organization Address City/[facility]/ZIP Co de Phone Number [facility] [address] [place] [phone] * HIV-1/2 Antigen and Antibodies, Fourth Generation, with Reflexes (12/12/2023 11:35 AM EDT) HIV AB/AG Nonreactive Nonreactive [facility] Comment:HIV-1 p24 Ag and/or HIV-1/HIV-2 Ab not detected.A test result that is nonreactive does not exclude thepossibility of exposure to or infection with HIV-1 and/orHIV-2. Nonreactive results in this assay for individualswith prior exposure to HIV-1 and/or HIV-2 may be due toantigen and antibody levels that are below the limit ofdetection of this assay.The [employer]ella [employer] Dot Alinity HIV Ag/Ab Combo assay result andsupplemental assay results should be interpreted inconjunction with the patient's clinical presentation,history and other laboratory results. If the results areinconsistent with clinical evidence, additional testing issuggested to confirm the result. Blood Venous blood specimen / Unknown 12/12/2023 11:35 AM EDT 12/12/2023 2:13 PM EDT us Comfort Bueno MD LAB BLOOD ORDERABLES Final Result Performing Organization Address [facility]/ZIP Co de Phone Number [facility] [address] [place] [phone] * Hemoglobin A1c (12/12/2023 11:35 AM EDT) Hemoglobin A1c 5.7 <6.0 % [facility] Comment:Hemoglobin A1C Refer ence Range Adults: 4.8 - 6.0 % Non diabetic: < 6.0 % Goal: < 7.0 %Additional Action Suggested: > 8.0 %Note: Hemoglobin A1c results are invalid for patients with abnormal amounts of HbF. Blood transfusions may impact the HbA1c concentration in the patient sample. Estimated Average Glucose 117 mg/dL [facility] Comment:eAG = Estimated ave rage glucose which is %A1C expressed asaverage glucose, using the formula of the X4W-MisfjlfJltejzn Glucose study (ADAG), Diabetes Care, Vol.31,#8,Oct. 2007 Blood Venous blood specimen / Unknown 12/12/2023 11:35 AM EDT 12/12/2023 2:13 PM EDT us Comfort Bueno MD LAB BLOOD ORDERABLES Final Result Performing Organization Address [facility]/ZIP Co de Phone Number [facility] [address] [place] [phone] * Hm Mammography (04/19/2022 4:09 PM EST) Mammogram Birads 1 Anatomical Region Laterality Modality Other Narrative 04/19/2022 4:09 PM EST Recommended routine annual screening us Historical Provider MD HEALTH MAINTENANCE Final Result * HPV mRNA E6/E7 (01/07/2018 10:22 AM EDT) HPV mRNA E6/E7 Not Detected NOT DETECTED [facility] Comment: This test was performed using the APTIMA(R) HPV Assay ([employer] This assay detects E6/E7 viral messenger RNA (mRNA) from 14 high-risk HPV types (16,18,31,33,35,39,45,51, 52,56,58,59,66,68). For additional information please refer to: http://education.Hotreader/faq/NQX683g3 (This link is being provided for informational/ educational purposes only.) The analytical performance characteristics of this assay have been determined by [employer] [place], [place]. The modifications have not been cleared or approved by the FDA. This assay has been validated pursuant to the CLIA regulations and is used for clinical purposes. Test Performed by [facility], [facility], [address] [place] [address] Jose Martin Gimenez M.D., Ph.D., Director of Laboratories , CLIA [id number] Please note: ??Effective 11/28/2015, HPV testing will be performed using [employer] APTIMA test which targets mRNA. Detecting mRNA instead of DNA, as in older methods, offers significant improvements in specificity. 01/07/2018 10:2 2 AM EDT Madhavi Wills CNM HISTORICAL/NON ORDERABLE LABS Final Result [facility] [address] from Last 3 Months or Most Recently Relevant to Health Maintenance Insurance [employer] PPO DENTAL - [facility] [employer] [place] [facility] [place] [facility] Address: [address] [place] [phone] Care Teams Truck Driver Helper Relationship Specialty Start Date End Date Comfort Bueno MD [address] [place] [phone] PCP - General Internal Medicine 03/18/18
--- OUTSIDE RECORDS SUMMARY | 2024-05-22 08:43 | XMS_ITS | Encounter Summary ---
Author Organization [employer] Address [address] [place] [address] [place] [address] Care Team Providers Care Drafting Clerk Name Role Phone Comfort Bueno MD Primary Care Provider Encounter Details Date Type Department Care Team ([facility] st Contact Info) Description 08/24/2022 Abstract [facility] [address] [place] [address] Comfort Bueno MD [address] [place] [address] Social History Tobacco Use Types Packs/Day Years [...] documented as of this encounter Care Teams Drafting Clerk Relationship Specialty Start Date End Date Comfort Bueno MD [address] [place] [phone] PCP - General Internal Medicine 03/18/18 documented as of this encounter
--- OUTSIDE RECORDS SUMMARY | 2024-05-22 08:43 | XMS_ITS | Encounter Summary ---
Author Organization [employer] Address [address] [facility] [address] [place] [address] Care Team Providers Care Oxygen Furnace Operator Name Role Phone Comfort Bueno MD Primary Care Provider [phone] Reason for Visit * Reason Onset Date Comments ER Follow-up 04/23/2023 Encounter Details Date Type Department Care Team ([facility] st Contact Info) Description 04/23/2023 Telephone [facility] MEDICINE [address] [place] [address] Comfort Bueno MD [address] [place] [address] ER Follow-up Social History Tobacco Use Types [...] ED visit on : Date: 04/22/2023 Hospital: [facility] Seen for: Abscess neck Patient advised will forward to team nurse for follow up documented in this encounter Plan of Treatment Not on file documented as of this encounter Visit Diagnoses Not on filedocumented in this encounter Additional Health Concerns Assessment Noted Time PHQ-9 Depression Total Score: 2 05/02/19 23 10:36 AM EST documented as of this encounter Care Teams Oxygen Furnace Operator Relationship Specialty Start Date End Date Comfort Bueno MD [address] [place] [address] PCP - General Internal Medicine 03/18/18 documented as of this encounter
--- OUTSIDE RECORDS SUMMARY | 2024-05-22 08:43 | XMS_ITS | Encounter Summary ---
Author Organization [employer] Address [address] [place] [address] [place] [address] Care Team Providers Care Instructor Dramatic Arts Name Role Phone Comfort Bueno MD Primary Care Provider Encounter Details Date Type Department Care Team ([facility] st Contact Info) Description 10/31/2022 Orders Only [facility] [address] [place], [place] [phone] Comfort Bueno MD [address] [place] [address] Annual physical exam (Primary Dx); Screening for [...] documented as of this encounter Care Teams Instructor Dramatic Arts Relationship Specialty Start Date End Date Comfort Bueno MD [address] [place] [phone] PCP - General Internal Medicine 03/18/18 documented as of this encounter
--- OUTSIDE RECORDS SUMMARY | 2024-05-22 08:43 | XMS_ITS | Encounter Summary ---
Author Organization [employer] Address [address] [facility] [address] [place] [address] Care Team Providers Care Calender Machine Operator Name Role Phone Comfort Bueno MD Primary Care Provider [phone] Reason for Visit * Reason Onset Date Comments Lab Orders 05/07/2024 Encounter Details Date Type Department Care Team (Late st Contact Info) Description 05/07/2024 Telephone [facility] MEDICINE [address] [place] [address] Comfort Bueno MD [address] [place] [address] Lab Orders Social History Tobacco Use Types [...] done. Pt is attending a program at [facility]. Does not have number for the office that handles medical information. Currently has ongoing symptoms of heavy discharge and foul smelling urine since the first week of March. Denies fever. LMP at the beginning of this month. Gave pt appt with walk-in at [facility] at 9am. Pt verbalized understanding and agreement [...] wants blood workdone. Please contact pt at [phone]. documented in this encounter Plan of Treatment Not on file documented as of this encounter Visit Diagnoses Not on filedocumented in this encounter Additional Health Concerns Assessment Noted Time PHQ-9 Depression Total Score: 3 12/12/19 24 10:50 AM EDT documented as of this encounter Care Teams Calender Machine Operator Relationship Specialty Start Date End Date Comfort Bueno MD [address] [place] [phone] PCP - General Internal Medicine 03/18/18 documented as of this encounter
[2024-05-25 17:27] LABS: TS Negative Control Passed; TS Panel A 2; TS Panel B 10; TS Positive Control Passed; TSpotTB Positive (Negative)
[2024-05-26 03:14] LABS: Rubeola IgG (Measles) >300.00 AU/mL
== END 2024-05-22 08:16 | disposition home or self-care (01) ==
LOC: HO.CHCLDS 08:15
PROVIDERS: Visit Provider Internal Medicine
DX: R73.01 Impaired fasting glucose (principal)
CPT/HCPCS: 36415; 86481; 86735; 86762; 86765; 86787